=== PATIENT | female | born 1950 | race Caucasian/White ===

== ENCOUNTER 2017-10-06 09:46 | Emergency (ER) | payer MEDICARE ==
[~2017-10-06] VITALS: Ht 162.6 cm; Wt 77.1 kg
[~2017-10-06 09:46] MED LIST: BACTRIM DS TAB1 EAC1 ORAL; IBUPROFEN600 MG ORAL; KEFLEX500 MG ORAL; VALIUM5 MG PO; VICODIN 5-5001 EACH PO
[2017-10-06] MEDS ORDERED: Acetaminophen 500mg (ES) tab ORAL ONE (10:00)
--- NOTE | 2017-10-06 10:08 | Emergency Room Report ---
History of Present Illness General Chief Complaint: Multiple Trauma/Fall Source: Patient Present Illness HPI 66-year-old female, no significant past medical history, presenting with left- sided shoulder pain after fall patient states that she chipped and fell on the sidewalk. Landed on her knee and caught herself with her arms. No head trauma or LOC. Complaining of left knee pain and left shoulder pain. Worse with movement. Patient still able to ambulate and bend knee without issue Allergies: Coded Allergies: PENICILLINS (Verified Allergy, Unknown, Rash, 01/16/16) Patient History Past Medical History: see triage record Past Surgical History: none Pertinent Family History: none Last Menstrual Period: Post Reviewed Nursing Documentation: PMH: Agreed, PSxH: Agreed Review of Systems All Other Systems: negative except mentioned in HPI Physical Exam Vital Signs Date Time Temp Pulse Resp B/P (MAP) Pulse Ox O2 Delivery O2 Flow Rate FiO2 10/06/17 09:37 97.6 103 18 200/109 97 Room Air 97.5 Sp02 EP Interpretation: reviewed, normal General Appearance: normal inspection, well appearing, no apparent distress, alert, GCS 15, non-toxic Head: normocephalic, atraumatic Eyes: bilateral eye normal inspection, bilateral eye PERRL, bilateral eye EOMI ENT: normal ENT inspection, normal pharynx, normal voice, moist mucus membranes Neck: normal inspection, full range of motion, supple Respiratory: normal inspection, lungs clear, normal breath sounds, no respiratory distress, no retraction, no wheezing, speaking full sentences, chest symmetrical Cardiovascular #1: normal inspection, regular rate, rhythm, no edema, normal capillary refill Cardiovascular #2: 2+ radial (R), 2+ radial (L) Gastrointestinal: normal inspection, non tender, soft, non-distended, no guarding Musculoskeletal: other - Left shoulder tenderness anterior aspect, has full range of motion of shoulder, full range of motion elbow and wrist. No other abnormalities. No gross bony deformity swelling or ecchymosis. Left knee with very superficial abrasion, no effusion, full range of motion of knee Neurologic: normal inspection, alert, oriented x3, responsive, motor strength/ tone normal, sensory intact, normal gait, speech normal Psychiatric: normal inspection, judgement/insight normal, memory normal Skin: normal inspection, normal color, no rash, warm/dry, well hydrated, normal turgor Procedures Splinting Splinting : Consent: Verbal Splint: L arm sling Pre-Proc Neuro Vasc Exam: normal Post-Proc Neuro Vasc Exam: normal Patient Tolerated: Well Complications: None Medical Decision Making Diagnostic Impression: Primary Impression: Contusion of left shoulder ER Course 66-year-old female with left shoulder pain and left knee pain after a fall DDX: benign physical exam, not very concerned as fracture, possibly more so contusion. Left knee and likely contusion, benign physical exam Plan: Pain control with Tylenol XR ER course: Patient reports improvement of pain X-ray negative pt placed in sling Disposition: Patient is to be discharged home Patient is to follow up with their primary care doctor within 5 days. Please note that this Emergency Department Report was dictated using [employer] technology software, occasionally this can lead to erroneous entry secondary to interpretation by the dictation equipment. Xray ordered: Left shoulder Complete Indication: Pain EP Interpretation: Yes Interpretation: No dislocation, no soft tissue swelling, no fractures Impression: No acute disease Electronically signed by Clarence Saucedo MD Last Vital Signs Date Time Temp Pulse Resp B/P (MAP) Pulse Ox O2 Delivery O2 Flow Rate FiO2 10/06/17 10:01 97.6 10/06/17 09:37 103 18 200/109 97 Room Air Disposition: HOME, SELF-CARE Condition: Improved Scripts No Active Prescriptions or Reported Meds Clarence Saucedo M.D. Oct 06, 2017 10:08
[2017-10-06 11:00] VITALS: BP 180/92
[2017-10-06 11:01] VITALS: BP 180/92
--- NOTE | 2017-10-06 11:37 | Diagnostic Imaging Report ---
Indication: Reason For Exam: PAIN Technique: 3 views of the left shoulder Comparison: none Findings: There is a nondisplaced fracture through the greater tuberosity extending to the metaphysis. This is not a through and through fracture. No dislocations. The joint spaces are preserved. Impression: Positive for left greater tuberosity fracture Findings discussed by phone with Dr. Saucedo at the time of interpretation
== END 2017-10-06 11:02 | disposition home or self-care (01) ==
LOC: EDBD 09:46 → EMR 10:10
DX: S42.255A Nondisplaced fracture of greater tuberosity of left humerus, initial encounter for closed fracture (principal); W01.0XXA Fall on same level from slipping, tripping and stumbling without subsequent striking against object, initial encounter; Y92.480 Sidewalk as the place of occurrence of the external cause; Z88.0 Allergy status to penicillin
CPT/HCPCS: 99283

== ENCOUNTER 2017-11-04 10:00 | Outpatient (RCR) | payer MEDICARE | END 2017-11-06 | disposition home or self-care (01) | LOC: PTY 10:00 | DX: S42.92XA Fracture of left shoulder girdle, part unspecified, initial encounter for closed fracture (principal); X58.XXXA Exposure to other specified factors, initial encounter; Y92.9 Unspecified place or not applicable | CPT/HCPCS: 97110; 97140; 97162; G8984; G8985 ==

== ENCOUNTER 2017-11-12 09:45 | Outpatient (RCR) | payer MEDICARE | END 2017-12-06 | disposition home or self-care (01) | LOC: PTY 09:45 | DX: S42.92XD Fracture of left shoulder girdle, part unspecified, subsequent encounter for fracture with routine healing (principal); X58.XXXD Exposure to other specified factors, subsequent encounter ==

== ENCOUNTER 2017-12-09 09:19 | Outpatient (RCR) | payer MEDICARE | END 2018-01-06 | disposition home or self-care (01) | LOC: PTY 09:19 | DX: S42.202D Unspecified fracture of upper end of left humerus, subsequent encounter for fracture with routine healing (principal); X58.XXXD Exposure to other specified factors, subsequent encounter | CPT/HCPCS: 97110; 97140; G8984; G8985 ==

== ENCOUNTER 2018-01-13 09:54 | Outpatient (RCR) | payer MEDICARE | END 2018-02-05 | disposition home or self-care (01) | LOC: PTY 09:54 | DX: S42.92XD Fracture of left shoulder girdle, part unspecified, subsequent encounter for fracture with routine healing (principal); X58.XXXD Exposure to other specified factors, subsequent encounter ==